=== PATIENT | female | born 1975 | race Two or more races ===

== ENCOUNTER 2024-08-04 15:03 | Emergency (ER) | payer MEDICAID, SELFPAY ==
[2024-08-04 15:04] VITALS: BMI 25.4
[2024-08-04 15:09] VITALS: BP 136/86; PULSE 83; RESP 16; TEMP 36.7; O2SAT 98
--- NOTE | 2024-08-04 15:11 | EKG_ITS ---
[facility] (Formerly [facility])[3] Test Date: 2024-08-04 Pat Name: RANCHO ENGEL Department: Room: - Gender: Female [employer]er Tube: : 1975 Requested By: Lawrence Jang (TOMMY) Order Number: [id number] Reading MD: Lawrence Jang (TOMMY) Measurements Intervals [place] Rate: 57 P: 49 SC: 154 QRS: 39 QRSD: 82 T: 36 QT: 421 QTc: 412 Interpretive Statements SINUS BRADYCARDIA WITH MARKED RHYTHM IRREGULARITY, POSSIBLE NON-CONDUCTED PAC, SA BLOCK, AV BLOCK, OR SINUS PAUSE ABNORMAL RHYTHM ECG No previous ECG available for comparison /[id number]/S0/[id number]
--- NOTE | 2024-08-04 16:07 | XR_ITS ---
Examination: PA lateral chest 2 views Technique: Upright PA lateral chest 2 views Exam date and time: August 04, 2024 1824 hrs. Comparison June 04, 2021 Indications: Shortness of breath chest pain beginning 2 days ago. Findings: Again noted large right mediastinal mass, currently 7.9 x 6.6 cm compressing and displacing the trachea to the left, please see the CT soft tissue neck study March 03, 2024 indicating partially calcified high right paratracheal mass 7.1 x 6.4 cm This mass was biopsied on October 20, 2021, pathology reports not available No obstructive pneumonia or pulmonary edema Impression: Again noted large right mediastinal mass, which is compressing and significantly displacing the trachea to the left Please see the CT soft tissue neck report March 03, 2024
--- NOTE | 2024-08-04 16:07 | XR_ITS ---
Examination: CT brain head without contrast. 2-D sagittal coronal reconstructions Date and time of exam:August 04, 2024 1659 hrs. Indications: Onset dizziness nausea vomiting beginning 3 days ago CTDI: vol (mGy):45.6 DLP: (mGycm):896 Technique: Multiple CT axial sections of the brain have been obtained, 5 mm slice thickness. Contrast has not been administered. 2-D sagittal, coronal reconstructions have been obtained Low dose protocols were performed. One or more of the following dose reduction techniques were used; automated exposure control, adjustment of the mA and/or KV according to patient size, use of iterative reconstruction technique. Findings: No significant ventricular enlargement. Intra-axial or extra-axial hemorrhage density is not seen. No mass effect or midline shift Basal cisterns are not remarkable. Fourth ventricle is midline. Cranial vault intact. Impression: Negative for acute hemorrhage, mass effect or midline shift Advise clinical correlation follow-up accordingly
--- NOTE | 2024-08-04 16:08 | PD.EDRME ---
Rapid Medical Screening Exam RME Arrival date/time: 08/04/24 15:03 41-year-old female presents to the emergency department complaints of dizziness Chief Complaint: Dizziness Vital signs: Vital Signs Temperature 98.0 F 08/04/24 15:09 Pulse Rate 83 08/04/24 15:09 Respiratory Rate 16 08/04/24 15:09 Blood Pressure 136/86 H 08/04/24 15:09 Pulse Oximetry (%) 98 08/04/24 15:09 Oxygen Delivery Method Room Air 08/04/24 15:09
[2024-08-04 16:27] LABS: Collection Type, Urine Clean Catch
[2024-08-04 17:07] LABS: Bacteria,Urine 1+; Bilirubin,Urine Negative (Negative); Blood,Urine 2+ (Negative); Clarity,Urine Clear (Clear/Hazy); Color,Urine Lt-Yellow (Lt Yel-Yel); Glucose, Urine 4+ (Negative); Ketones,Urine Negative (Negative); Leukocyte Esterase,Urine Negative (Negative); Nitrite,Urine Negative (Negative); PH,Urine 6.5 (5.0-7.0); Protein,Urine Negative (Neg - Trace); RBC,Urine 1 /hpf (0-3); Specific Gravity,Urine 1.031 (1.001-1.035); Squamous Epithelial Cell,Urine 1 /hpf (0-5); Urobilinogen,Urine Negative mg/dL (0.0-1.0); WBC,Urine 1 /hpf (0-5)
[2024-08-04 17:10] LABS: Culture Indicated,Urine Yes
[2024-08-04 17:44] LABS: Basophils # (Auto) 0.1 Thou/mm3 (0.0-0.2); Basophils % (Auto) 1 % (0-2.5); Eosinophils # (Auto) 0.6 Thou/mm3 (0.0-0.5); Eosinophils % (Auto) 5 % (0-10); Hematocrit 30.9 % (36.0-46.0); Hemoglobin 8.9 g/dL (12.0-16.0); Immature Granulocytes % (Auto) 0 % (0-0); Immature Granulocytes Auto 0.02 Thou/mm3 (0.00-0.00); Lymphocytes # (Auto) 3.9 Thou/mm3 (1.0-4.8); Lymphocytes % (Auto) 36 % (10-50); Mean Corpuscular HGB Conc 28.8 g/dl (31.0-37.0); Mean Corpuscular Hemoglobin 18.1 pg (25.0-35.0); Mean Corpuscular Volume 63 fL (80-100); Monocytes # (Auto) 0.9 Thou/mm3 (0.0-0.8); Monocytes % (Auto) 8 % (0-12); Neutrophils # (Auto) 5.2 Thou/mm3 (1.8-7.7); Neutrophils % (Auto) 49 % (37-80); Nucleated Red Blood Cell % 0 /100 WBC (0); Platelet Count 230 Thou/mm3 (140-440); RDW Standard Deviation 52.8 fL (36.4-46.3); Red Blood Count 4.92 Miln/mm3 (4.00-5.20); White Blood Count 10.6 Thou/mm3 (3.6-11.0)
[2024-08-04 18:00] LABS: Alanine Aminotransferase 50 U/L (10-49); Albumin, Serum 4.5 gm/dL (3.5-5.0); Albumin/Globulin Ratio 1.7 (1.2-2.2); Alkaline Phosphatase 92 U/L (46-116); Anion Gap 5 (7-16); Aspartate Amino Transferase 40 U/L (0-34); BUN/Creatinine Ratio 17 Ratio (12-20); Bilirubin,Total 0.4 mg/dL (0.3-1.2); Blood Urea Nitrogen 10 mg/dL (9-23); Calcium 9.5 mg/dL (8.3-10.6); Calcium (Corrected) 9.5 mg/dL (8.5-10.1); Carbon Dioxide 27.7 mMol/L (20.0-31.0); Chloride 104 mMol/L (98-107); Creatinine (Component) 0.6 mg/dL (0.6-1.3); Estimated Creatinine Clearance 104.2 mL/min (>60); Globulin 2.6 gm/dL (2.3-3.5); Glucose 110 mg/dL (74-106); Osmolality,Calculated 273 (275-295); Potassium 3.8 mMol/L (3.4-5.1); Sodium 137 mMol/L (136-145); Thyroid Stimulating Hormone 0.33 uIU/mL (0.55-4.78); Total Protein 7.1 gm/dL (5.7-8.2); Troponin I < 0.002 ng/mL (0.0-0.045); eGFR > 60 See Note
--- NOTE | 2024-08-04 18:54 | EDNOTE_ITS ---
ED Dizzyness RME/HPI General Chief Complaint: Dizziness Stated Complaint: NAUSEA DIZZINESS X 3 DAY HX DIABETES Time Seen by Provider: 08/04/24 18:31 Arrival date/time: 08/04/24 15:03 Limitations: no limitations RME / HPI RME / HPI Narrative: 08/04/24 15:03 41-year-old female presents to the emergency department complaints of dizziness DR. ELAM MAIN ED EVALUATION: 49 year old female presents to the Emergency Department with complaint of dizziness onset 3 days. Symptoms are moderate. PMHx: Thyroidectomy for benign disease and was diagnosed with left lung mass for which she is getting treatment, apparently it was benign according to her. Takes Levothyroxine. History of diabetes. Social Hx: No tobacco, alcohol, or substance use. Related Data Home Medications ?Medication ?Instructions ?Recorded ?Confirmed levothyroxine 50 mcg tablet 1 tab PO QDAY 02/05/22 02/24/23 sitagliptin phosphate 50 1 tab PO BID 02/05/22 02/24/23 mg-metformin 500 mg tablet (Janumet) drospirenone 3 mg-ethinyl 1 tab PO QDAY 02/23/23 02/24/23 estradiol 0.03 mg tablet (Breanne (28)) Allergies Allergy/AdvReac Type Severity Reaction Status Date / Time No Known Allergies Allergy Verified 09/05/23 11:11 Review of Systems Review of Systems Systems Reviewed: All systems reviewed, normal except as documented Narrative Review of Systems: GEN: No fever, no chills, no weight loss EYES: No discharge, no visual changes, no pain HEENT: No ear pain, no congestion, no sore throat PULM: No shortness of breath, no cough, no congestion CV: No chest pain, no dyspnea on exertion, no palpitations GI: No nausea, no vomiting, no diarrhea, no pain, no constipation : No frequency, no urgency and no dysuria MUSC/SKEL: No joint pain, no back pain SKIN: No rash PSYCH: No hallucinations, no depression HEME/LYMPH: No easy bleeding or bruising tendencies NEURO: No weakness, no headache, + dizziness Past Medical History Past Medical History NEUROLOGIC: Negative Neurological Disorders, Cerebrovascular Accident, Transient Ischemic Attacks (TIA), Dementia, Alzheimer's Disease, Parkinson's Disease, Brain Tumor, Meningitis, Seizures, Epilepsy, Multiple Sclerosis, Cerebral Palsy, Amyotrophic Lateral Sclerosis (ALS/Cammie Gehrig's), Guillain-[place] Syndrome, Spina Bifida, Paralysis, Peripheral Neuropathy, Parks's Palsy, Subdural Hematoma, Migraine, Head Trauma, Spinal Cord Injury or Traumatic Brain Injury CARDIAC: Negative Cardiac Disorders, Myocardial Infarction, Cardiac Arrhythmia, Atrial Fibrillation, Angina, Heart Murmur, Coronary Artery Disease, Atherosclerotic Heart Disease, Peripheral Vascular Disease, Hypercholesterolemia, Aneurysm, Congestive Heart Failure, Congenital Heart Disease, Valvular Heart Disease, Rheumatic Fever, Cardiomyopathy, Edema, Pericarditis, Cellulitis, Deep Vein Thrombosis, Hypertension, Hypotension or Varicose Veins RESPIRATORY: Negative Chronic Obstructive Pulmonary Disease (COPD), Asthma, Bronchitis, Emphysema, Pneumonia, Pulmonary Fibrosis, Cystic Fibrosis, Tuberculosis, Pulmonary Embolism, Pulmonary Edema or Sleep Apnea GASTROINTESTINAL: Negative Gastrointestinal Disorders, Hepatitis, Cirrhosis, Pancreatitis, Celiac Disease, Gall Bladder Disease, Gastrointestinal Bleed, Esophageal Varices, Desouza's Esophagus, Colitis, Ulcerative Colitis, Diverticulitis, Diverticulosis, Ulcer, Colorectal Cancer, Irritable Bowel, Crohn's Disease, Obstructive Bowel, Hiatal Hernia, Hemorrhoids, Gastroesophageal Reflux Disease or Obesity GENITOURINARY: Positive Genitourinary Disorders (OVARIAN CYSTS); Negative Renal Disease, Kidney Stones, Polycystic Kidney Disease, Neurogenic Bladder, Inguinal Hernia or Dialysis REPRODUCTIVE: Positive Previous Pregnancies; Negative Breast Cancer, Endometriosis, Genital Herpes, Gonorrhea, Pelvic Inflammatory Disease, Syphilis or Uterine Prolapse MUSCULOSKELETAL: Negative Musculoskeletal Disorders, Muscular Dystrophy, Myasthenia Gravis, Marfan's Syndrome, Bone Cancer, Arthritis, Rheumatoid Arthritis, Osteoporosis, Degenerative Disk Disease, Gout, Scoliosis, Carpal Tunnel Syndrome, Fibromyalgia, Fractures, Degenerative Joint Disease, Osteomyelitis or Poliovirus ENT: Negative Cataracts, Glaucoma, Blind, Retinal Detachment, Macular Degeneration, Ear Infection, Deafness, Head Trauma or Eye Prosthesis ENDOCRINE: Positive Endocrine Disorders, Diabetes Mellitus Type 2, Hyperthyroidism, Hypothyroidism and Parathyroid Disease; Negative Diabetes Mellitus Type 1, Hypoglycemia, Rad's Syndrome, Manolo's Disease, Pituitary Disease, Systemic Lupus Erythematosus, Syndrome of Inappropriate Antidiuretic Hormone (SIADH), Adrenal Disease or Graves' Disease HEMATOLOGIC: Positive Blood Disorders and Anemia; Negative Leukemia, Hemophilia, Thalassemia, Sickle Cell Disease or Clotting Problems PSYCHO/SOCIAL: Negative Psychiatric Problems, Schizophrenia, Recreational Drug Use, Bipolar Disorder, Depression, Anxiety, Behavior Problems, Self-Mutilation, Attention Deficit Disorder, Attention Deficit Hyperactivity Disorder, Depression, Post Traumatic Stress Disorder or Eating Disorder OTHER HISTORY: Positive Chicken Pox and Measles; Negative Hospitalization, Autoimmune Disease, Down Syndrome, Autism, Developmental Delay, Shingles, Falls, Blood Transfusions, Blood Transfusion Reaction, Anesthesia Reactions, Organ Transplant, Chemotherapy, Radiation Therapy, Hyperbaric Therapy, MRSA, VRSA, Vancomycin-Resistant Enterococci, Human Immunodeficiency Virus (HIV), Mumps, Rubella (Faroese Measles), Pertussis, Clostridium Difficile, Cancer, Breast Cancer, Cervical Cancer, Colorectal Cancer, Lung Cancer or Ovarian Cancer Family History FAMILY HISTORY: Negative Family Psychiatric Problems, Family Respiratory Disorders, Family Cardiac Disorders, Family Gastrointestinal Problems, Family Cancer, Family Surgery or Family Anesthesia Reaction Surgical History SURGICAL: Positive Thyroidectomy and Tubal Ligation; Negative Cardiac Surgery, Open Heart Surgery, Coronary Artery Bypass Graft, Valve Replacement, Vascular Surgery, Coronary Stent, Cardiac Catheterization, Pacemaker, Angiogram, Auto Implanted Cardiovert Defib, Carotid Endarterectomy, Endocrine Surgery, Ear Surgery, Tympanostomy Tube, Eye Surgery, Nose Surgery, Oral Surgery, Tonsillectomy, Adenoidectomy, Cochlear Implant, Corneal Transplant, Throat Surgery, Abdominal Surgery, Tracheostomy, Gastric Bypass Surgery, Gastrostomy, Bowel Surgery, Nephrectomy, Transurethral Resection, Joint Replacement, Amputation, Open Reduction Internal Fixation, Arthroscopy, Neurologic Surgery, Brain Shunt, Mastectomy, Lumpectomy, Hysterectomy, Section or Organ Transplant Social History SMOKING STATUS: Never smoker SUBSTANCE USE: does not use ED Exam General Limitations: Present no limitations General appearance: Present alert, in no apparent distress and other (Patient looks clinically dehydrated.) Head Head exam: Present atraumatic, normocephalic and normal inspection Eye Eye exam: Present normal appearance, PERRL and EOMI ENT ENT exam: Present normal exam, normal oropharynx and mucous membranes dry Neck Neck exam: Present normal inspection, full ROM and trachea midline Chest Chest inspection: Present normal inspection and symmetric chest wall rise Respiratory Respiratory exam: Present normal lung sounds bilaterally Cardiovascular Cardiovascular exam: Present regular rate, normal rhythm and normal heart sounds Abdominal Exam Abdominal exam: Present soft and normal bowel sounds Extremities Exam Extremities exam: Present normal inspection and full ROM Back Exam Back exam: Present normal inspection and full ROM Neurological Exam Neurological exam: Present alert, oriented X3 and CN II-XII intact Psychiatric Psychiatric exam: Present normal affect and normal mood Skin Skin exam: Present warm, dry, intact and normal color Course Quality Measures none Orders Category Date Time Status Bedside Blood Glucose NOW Care 08/04/24 15:[address] Screening NOW Care 08/04/24 23:19 Active EKG (ED ONLY) *Do not use* NOW Care 08/04/24 15:11 Completed Insert IV NOW Care 08/04/24 20:[address] chest abdomen pelvis w Stat Exams 08/04/24 23:[address] head/brain wo con Stat Exams 08/04/24 16:07 Completed EKG (ED Only) Stat Exams 08/04/24 15:11 Draft XR chest 2V Stat Exams 08/04/24 16:07 Completed CBC Stat Lab 08/04/24 17:18 Completed Comprehensive Metabolic Panel Stat Lab 08/04/24 17:18 Completed Free T4 (Free Thyroxine) Stat Lab 08/04/24 17:18 Completed HCG,Qualitative Serum Stat Lab 08/04/24 17:18 Completed TSH [Thyroid Stimulating Hormone] Stat Lab 08/04/24 17:18 Completed Troponin I Stat Lab 08/04/24 17:18 Completed UA, C/S IF [Urinalysis, C/S if Indicated] Stat Lab 08/04/24 16:15 Completed Urine Culture Stat Lab 08/04/24 16:15 Received Sodium Chloride 0.9% 1000 ml [Ns] 1,000 ml Med 08/04/24 20:28 Discontinued IV 999 mls/hr Vital Signs Vital signs: Vital Signs Temperature 98.0 F 08/04/24 15:09 Pulse Rate 83 08/04/24 15:09 Respiratory Rate 16 08/04/24 15:09 Blood Pressure 136/86 H 08/04/24 15:09 Pulse Oximetry (%) 98 08/04/24 15:09 Oxygen Delivery Method Room Air 08/04/24 15:09 Dizziness MDM Narrative MDM Narrative:: IDory am scribing for and in the presence of Dr. Elam. Patient data External records reviewed:: [facility] previous records (Reviewed last ED visit dated 03/03/24, discharged with the following: Peritracheal mass.) Clinical information provided by:: patient Social determinants that could affect healthcare access:: none Patient has the following chronic illnesses:: Thyroidectomy for benign disease and was diagnosed with left lung mass for which she is getting treatment, apparently it was benign according to her. Takes Levothyroxine. History of diabetes. How is presenting disease/condition affected by chronic disease/condition?: exacerbated by Evaluation data The following diagnostics were reviewed and interpreted by me:: lab results, radiology exam(s) and EKG tracing(s) (done at 1521, sinus bradycardia, rate of 57, PACs, no ST elevations or depressions, similar to previous EKG done in 2020.) Lab and/or radiology exams considered but not ordered:: none Interpretation Summary: Procedure(s): CT head/brain wo con Accession Number(s): [id number] cc: Suhail (TOMMY),Lawrence SANDERS; Handy Carr MD; Dhaval Burnham MD~ Examination: CT brain head without contrast. 2-D sagittal coronal reconstructions Date and time of exam:August 04, 2024 1659 hrs. Indications: Onset dizziness nausea vomiting beginning 3 days ago CTDI: vol (mGy):45.6 DLP: (mGycm):896 Technique: Multiple CT axial sections of the brain have been obtained, 5 mm slice thickness. Contrast has not been administered. 2-D sagittal, coronal reconstructions have been obtained Low dose protocols were performed. One or more of the following dose reduction techniques were used; automated exposure control, adjustment of the mA and/or KV according to patient size, use of iterative reconstruction technique. Findings: No significant ventricular enlargement. Intra-axial or extra-axial hemorrhage density is not seen. No mass effect or midline shift Basal cisterns are not remarkable. Fourth ventricle is midline. Cranial vault intact. Impression: Negative for acute hemorrhage, mass effect or midline shift Advise clinical correlation follow-up accordingly Dictated By: Dhaval Burnham MD ---- Procedure(s): XR chest 2V Accession Number(s): [id number] cc: Suhail (TOMMY),Lawrence SANDERS; Handy Carr MD; Dhaval Burnham MD~ Examination: PA lateral chest 2 views Technique: Upright PA lateral chest 2 views Exam date and time: August 04, 2024 1824 hrs. Comparison June 04, 2021 Indications: Shortness of breath chest pain beginning 2 days ago. Findings: Again noted large right mediastinal mass, currently 7.9 x 6.6 cm compressing and displacing the trachea to the left, please see the CT soft tissue neck study March 03, 2024 indicating partially calcified high right paratracheal mass 7.1 x 6.4 cm This mass was biopsied on October 20, 2021, pathology reports not available No obstructive pneumonia or pulmonary edema Impression: Again noted large right mediastinal mass, which is compressing and significantly displacing the trachea to the left Please see the CT soft tissue neck report March 03, 2024 Dictated By: Dhaval Burnham MD -------- Telerad Preliminary Report Draft Patient: RANCHO ENGEL. Record#: [id number] Birthdate: 1975 Age/Sex: 49 / F Location: [facility] Attending Dr: Ordering Physician: Date of Service: Procedure(s): Accession Number(s): cc: ~ CT scan of the chest, abdomen and pelvis with intravenous contrast (axial sections with sagittal and coronal reformats) August 05, 2024 0033 hours Clinical History: 49-year-old diabetes history of mediastinal mass Comparison: Reference is made to the prior report dated June 04, 2021. Findings: The lungs are clear. There is no pleural effusion or pneumothorax. The aorta and its branches demonstrate atheromatous calcification without evidence of aneurysm. No evidence of mediastinal lymphadenopathy. There is a soft tissue round mass in the right upper mediastinum with heterogeneous enhancement and peripheral rim calcifications, measuring up to 7 x 7 x 6 cm (AP x CC x TR). There is no pericardial effusion. There is borderline cardiomegaly. There is a small (6 mm) hypodense nodules in the left lobe of the thyroid gland (axial image 4). There is mild fatty infiltration of the liver. The gallbladder, spleen, pancreas, adrenals and kidneys are unremarkable. No evidence of bowel obstruction. A moderate amount of fecal material is present in the colon . The appendix is within normal limits (axial image 217). The urinary bladder is unremarkable. There is a 2 cm hypodense round lesion in the uterus (axial image 247). There is a 2 cm left ovarian cyst (axial image 244). There is no free fluid or air. There are moderate degenerative changes in the hip joints. There are moderate degenerative changes in the spine. Impression: Right upper mediastinal mass as described. No evidence of lymphadenopathy. No evidence of other acute intrathoracic, intra-abdominal or pelvic pathology. Other findings as described above. Report Electronically Signed By: Eva Sparks 08/05/2024 1:51:14 AM [EST] Medications / Prescriptions Medications or Prescriptions considered but not ordered:: none Medication administrations:: Medication Administration History Discontinued Medications Sodium Chloride (Ns) 1,000 mls @ 999 mls/hr IV .Q1H1M ONE Stop: 08/04/24 21:28 Last Infusion: 08/04/24 22:03 Dose: Infused Documented By: Admin: 08/04/24 20:53 Dose: 999 mls/hr Documented By: TATUM see above Consultations Consultation(s) initiated? (list below): No Diagnosis Dizziness Differential Diagnosis: other (Diabetes, dehydration, electrolyte abnormality, thyroid disease) Most likely diagnosis given after review of the tests above:: see below Admission Indicated Admission indicated?: not indicated Admission Request Was there a request for admission?: No Disposition Plan Disposition Plan: Discharge Discharge Attestation Discharge Attestation: The patient and all family members were given an opportunity to ask questions and understood the discharge instructions. Discharge instructions specifically effects, indications for sooner follow up or return to the emergency department, and the expected course of current diagnosis. Patient condition: Stable Discharge Plan Plan Patient Disposition: HOME (Self Care) Patient condition on transfer: Stable Prescriptions/Referrals Prescriptions/Med Rec: No Action levothyroxine 50 mcg tablet 1 tab PO QDAY Janumet 50-500 mg tablet 1 tab PO BID drospirenone-ethinyl estradiol [Breanne (28)] 3-0.03 mg tablet 1 tab PO QDAY Referrals: Handy Carr MD [Primary Care Provider] - In 1 week Problem List Clinical Impression: Weakness, Chronic anemia Patient/Caregiver Discharge Instructions Education Materials: Understanding Tachycardia, ED CYSTITIS Female Adult, UITs Women Additional Instructions: Take your medication as prescribed. You will need to follow-up with your primary care in the next 48 to 72 hours to get the results of the urine culture. Avoid any type of stimulants to include caffeine, stay hydrated with Pedialyte and/or Gatorade and you want your urine to be most clear so you know that you are hydrated well. Return to the emergency department sooner for worsening symptoms, you feel like you are going to pass out, your heart rate increases, you have fever, or any other concerns. Print Language: Cymro Stand Alone Forms: Crystal Award Info., Patient Portal Info Letter
[2024-08-04 20:13] VITALS: BP 174/68; PULSE 58; RESP 16; TEMP 36.7; O2SAT 100
[2024-08-04] MEDS: SODIUM CHLORIDE 0.9% 1000 ML 1,000 ML 999 ML IV (20:53)
[2024-08-04 23:19] VITALS: BP 117/53; PULSE 70; RESP 17; TEMP 36.6; O2SAT 96
--- NOTE | 2024-08-04 23:19 | XR_ITS ---
Examination: CT chest with intravenous contrast CT abdomen with intravenous contrast CT pelvis with intravenous contrast 2-D coronal and sagittal reconstructions Time of exam: August 05, 2024 0033 hrs. Indications: Shortness of breath abdominal pain nausea dizziness beginning 3 days ago, history mediastinal mass on chest imaging and on CT chest June 04, 2021 CTDI: vol (mGy) : 6.83 DLP: (mGycm): 487 Technique: Multiple axial images of the chest, abdomen and pelvis with intravenous contrast, 3.0 mm slice thickness. Images obtained post intravenous injection Isovue 370 60 cc. 2-D sagittal and coronal reconstructions. Low dose protocols were performed. One or more of the following dose reduction techniques were used; automated exposure control, adjustment of the mA and/or KV according to patient size, use of iterative reconstruction technique. Findings: Large right lateral superior mediastinal mass again depicted, 7.1 x 6.3 cm compared to 6.6 x 6.3 cm June 04, 2021 This may actually represent residual of a enlarged substernal right thyroid lobe clinical correlation advised I do not have the biopsy results of this mass The mass is displacing the trachea to the left hand narrowing the mediolateral dimension of the trachea, axial image 37, history 10 mm 6 mm left thyroid nodule Aorta not enlarged No pulmonary artery emboli CTA study No lobar pneumonia or pulmonary edema No liver or splenic lesion Contracted gallbladder No pancreatic or adrenal mass No renal or ureteral calculi, no hydronephrosis Normal appendix No bowel obstruction 12 mm enhancing mass in the fundus of uterus Urinary bladder intact Impression: Large right superior-lateral mediastinal mass again noted, 7.1 x 6.3 cm compared to 6.6 x 6.3 cm on June 04, 2021 Differential for this mass would include substernal right thyroid mass 6 mm left thyroid nodule No pneumonia or pulmonary edema No acute process in the abdomen and pelvis Recommend pelvic sonography to assess enhancing mass in the fundus of uterus
[2024-08-05 00:12] LABS: HCG,Qualitative Serum Negative
[2024-08-05 01:00] VITALS: BP 134/85; PULSE 59; RESP 18; TEMP 36.6; O2SAT 99
--- NOTE | 2024-08-05 01:51 | PRELIM_ITS ---
CT scan of the chest, abdomen and pelvis with intravenous contrast (axial sections with sagittal and coronal reformats) August 05, 2024 0033 hours Clinical History: 49-year-old diabetes history of med iastinal mass Comparison: Reference is made to the prior report dated June 04, 2021. Findings:The lungs are clear. There is no pleural effusion or pneumothorax. The aorta and its branches demonstrate atheromatous calcification without evidence of aneurysm. No evidence of mediastinal lymphadenopathy. There is a soft tissue round mass in the right upper mediastinum with heterogeneous enhancement and peripheral rim calcifications, measuring up to 7 x 7 x 6 cm (AP x CC x TR). There is no pericardial e ffusion. There is borderline cardiomegaly. There is a small (6 mm) hypodense nodules in the left lobe of the thyroid gland (axial image 4).There is mild fatty infiltration of the liver. The gallbladder, spleen, pancreas, adrenals and kidneys are unremarkable.No evidence of bowel obstruction. A moderate amount of fecal material is present in the colon . The appendix is within normal limits (axial image 217).The urinary bladder is unremarkable. There is a 2 cm hypodense round lesion in the uterus (axia l image 247). There is a 2 cm left ovarian cyst (axial image 244). There is no free fluid or air.Ther e are moderate degenerative changes in the hip joints. There are moderate degenerative changes in the spine.Impression:Right upper mediastinal mass as described. No evidence of lymphadenopathy.No eviden ce of other acute intrathoracic, intra-abdominal or pelvic pathology.Other findings as described patrick sainz Report Electronically Signed By: Eva Sparks 08/05/2024 1:51:14 AM [EST]
[2024-08-05 02:45] VITALS: BP 129/63; PULSE 58; RESP 16; TEMP 36.7; O2SAT 97
[2024-08-05 04:29] LABS: Path Review Blood Smear Sent to Pathologist
== END 2024-08-05 02:45 | disposition home or self-care (01) ==
PROVIDERS: Nurse Practitioner Primary Care; Emergency Provider Emergency Medicine; PCP Family Medicine
DX: D64.9 Anemia, unspecified (principal); J98.59 Other diseases of mediastinum, not elsewhere classified; R53.1 Weakness; R00.1 Bradycardia, unspecified; R42 Dizziness and giddiness; R11.2 Nausea with vomiting, unspecified
CPT/HCPCS: 36415; 70450; 71046; 71260; 74177; 80053; 81001; 84439; 84443; 84484; 84703; 85025; 87077; 87086; 87186; 93005; 96360; 99285; A4649; J7030; Q9967

== ENCOUNTER 2024-12-29 11:20 | Emergency (ER) | payer MEDICAID, SELFPAY ==
[2024-12-29 12:04] VITALS: BP 121/76; PULSE 59; RESP 18; TEMP 37.2; O2SAT 98; BMI 22.0
--- NOTE | 2024-12-29 12:15 | XR_ITS ---
Examination: Thyroid sonography complete Technique: Grayscale sonographic images thyroid lobes Date and time: December 29, 2024 1320 hrs. Indications: Throat pain beginning 3 weeks ago, history thyroid ectomy Findings: Absent right thyroid lobe Left thyroid 4.0 x 1.7 x 1.7 cm Multiple thyroid nodules, the largest in the lower pole 1.1 x 0.7 x 2.8 cm, 0.6 x 0.4 x 0.5 cm and cysts 0.9 x 0.7 x 0.8 cm Impression: Negative for left thyromegaly Multiple left thyroid nodules as above
--- NOTE | 2024-12-29 12:19 | PD.EDDENTL ---
ED Dental RME/HPI General Chief complaint: Dental/Oral/Throat Stated complaint: SORE THROAT X 3 WKS Time Seen by Provider: 12/29/24 11:31 Arrival date/time: 12/29/24 11:20 This is a 49-year-old female that comes in with complaints of sore throat for the last 3 days. Patient states that she had her thyroid removed approximately 2 years ago. Patient states that after her thyroid was removed she has trouble swallowing on and off. Patient has been seen for this problem with her primary provider. She reports that before she found out she had her thyroid removed she felt like there was a lump in her neck. Then knots when they found the cancer. Patient concerned that the cancer is back. Patient also complains of small little ulcers inside her mouth. Patient complains of a mild headache. History of diabetes and thyroid cancer. Related Data Home Medications ?Medication ?Instructions ?Recorded ?Confirmed levothyroxine 50 mcg tablet 1 tab PO QDAY 02/05/22 02/24/23 sitagliptin phosphate 50 1 tab PO BID 02/05/22 02/24/23 mg-metformin 500 mg tablet (Janumet) drospirenone 3 mg-ethinyl 1 tab PO QDAY 02/23/23 02/24/23 estradiol 0.03 mg tablet (Breanne (28)) Previous Rx's ?Medication ?Instructions ?Recorded ibuprofen 800 mg tablet 800 mg PO Q6H PRN pain #14 tabs 12/29/24 Allergies Allergy/AdvReac Type Severity Reaction Status Date / Time No Known Allergies Allergy Verified 12/29/24 11:23 Course Orders Category Date Time Status US thyroid Stat Exams 12/29/24 12:15 Completed Acetaminophen Tab [Tylenol ES Tab] Med 12/29/24 12:15 Discontinued 1,000 mg PO X1 ONE Ibuprofen Tab [Motrin Tab] Med 12/29/24 12:15 Discontinued 800 mg PO X1 ONE Vital Signs Vital signs: Vital Signs Temperature 98.9 F 12/29/24 12:04 Pulse Rate 59 L 12/29/24 12:04 Respiratory Rate 18 12/29/24 12:04 Blood Pressure 121/76 12/29/24 12:04 Pulse Oximetry (%) 98 12/29/24 12:04 Oxygen Delivery Method Room Air 12/29/24 12:04 Dental / Oral MDM Narrative MDM Narrative:: Findings: Absent right thyroid lobe Left thyroid 4.0 x 1.7 x 1.7 cm Multiple thyroid nodules, the largest in the lower pole 1.1 x 0.7 x 2.8 cm, 0.6 x 0.4 x 0.5 cm and cysts 0.9 x 0.7 x 0.8 cm Impression: Negative for left thyromegaly Multiple left thyroid nodules as above Medications / Prescriptions Medication administrations:: Medication Administration History Discontinued Medications Acetaminophen (Acetaminophen 500 Mg Tablet) 1,000 mg PO X1 ONE Stop: 12/29/24 12:16 Last Admin: 12/29/24 12:46 Dose: 1,000 mg Documented By: CALIXTO Ibuprofen (Ibuprofen Tab 400 Mg Tablet) 800 mg PO X1 ONE Stop: 12/29/24 12:16 Last Admin: 12/29/24 12:46 Dose: 800 mg Documented By: CALIXTO Discharge Plan Plan Patient Disposition: HOME (Self Care) Patient condition on transfer: Stable Prescriptions/Referrals Prescriptions/Med Rec: New ibuprofen 800 mg tablet 800 mg PO Q6H PRN (Reason: pain) Qty: 14 0RF No Action levothyroxine 50 mcg tablet 1 tab PO QDAY Janumet 50-500 mg tablet 1 tab PO BID drospirenone-ethinyl estradiol [Breanne (28)] 3-0.03 mg tablet 1 tab PO QDAY Referrals: Eliza Lobato PA-C [Primary Care Provider] - In 1 week Problem List Clinical Impression: Aphthous ulcer of mouth, URI (upper respiratory infection) Patient/Caregiver Discharge Instructions Discharge Activity: activity as tolerated Education Materials: ED Canker Sore, ED URI, Viral, No Abx (Adult) Additional Instructions: US thyroid: Findings: Absent right thyroid lobe Left thyroid 4.0 x 1.7 x 1.7 cm Multiple thyroid nodules, the largest in the lower pole 1.1 x 0.7 x 2.8 cm, 0.6 x 0.4 x 0.5 cm and cysts 0.9 x 0.7 x 0.8 cm Impression: Negative for left thyromegaly Multiple left thyroid nodules as above Dona un sonido con palencia medico de cabecera en las proximas 24-48 horas. Regrese a la justo de emergencias si hay evidencia de que los signos o sintomas empeoran. Print Language: Jordanian Stand Alone Forms: Crystal Award Info., Patient Portal Info Letter PA/HOSPITAL MORTICIAN Supervising Physician PA/HOSPITAL MORTICIAN Supervising Physician: mira
[2024-12-29] MEDS: ACETAMINOPHEN 500 MG TABLET 1000 MG PO (12:46)
[2024-12-29] MEDS: IBUPROFEN TAB 400 MG TABLET 800 MG PO (12:46)
== END 2024-12-29 16:00 | disposition home or self-care (01) ==
PROVIDERS: Emergency Provider Emergency Medicine; PCP Physician Assistant Medical
DX: K12.0 Recurrent oral aphthae (principal); J06.9 Acute upper respiratory infection, unspecified; R51.9 Headache, unspecified; E11.9 Type 2 diabetes mellitus without complications; Z85.850 Personal history of malignant neoplasm of thyroid; E04.2 Nontoxic multinodular goiter
CPT/HCPCS: 76536; 99284; A9270

== ENCOUNTER 2025-02-18 15:22 | Outpatient (RCR) | payer MEDICAID, SELFPAY | END 2025-03-14 23:59 | disposition home or self-care (01) | LOC: SCTC 15:22 | PROVIDERS: PCP Physician Assistant Medical; Referring Provider Physician Assistant Medical; Visit Provider Nurse Practitioner Family | DX: D50.9 Iron deficiency anemia, unspecified (principal); N92.0 Excessive and frequent menstruation with regular cycle; E89.0 Postprocedural hypothyroidism; Z79.890 Hormone replacement therapy | CPT/HCPCS: 99212; G0463 ==

== ENCOUNTER → 2025-04-22 | Outpatient (CLI) | payer MEDICAID, SELFPAY ==
[2025-04-22 08:11] LABS: Basophils # (Auto) 0.1 Thou/mm3 (0.0-0.2); Basophils % (Auto) 2 % (0-2.5); Eosinophils # (Auto) 0.3 Thou/mm3 (0.0-0.5); Eosinophils % (Auto) 5 % (0-10); Hematocrit 26.4 % (36.0-46.0); Immature Granulocytes Auto 0.04 Thou/mm3 (0.00-0.00); Lymphocytes # (Auto) 2.1 Thou/mm3 (1.0-4.8); Lymphocytes % (Auto) 32 % (10-50); Mean Corpuscular HGB Conc 26.5 g/dl (31.0-37.0); Mean Corpuscular Hemoglobin 15.7 pg (25.0-35.0); Mean Corpuscular Volume 59 fL (80-100); Monocytes # (Auto) 0.5 Thou/mm3 (0.0-0.8); Monocytes % (Auto) 7 % (0-12); Neutrophils # (Auto) 3.5 Thou/mm3 (1.8-7.7); Neutrophils % (Auto) 53 % (37-80); Nucleated Red Blood Cell # 0.00 Thou/mm3 (0.00-0.00); Nucleated Red Blood Cell % 0 /100 WBC (0); Platelet Count 206 Thou/mm3 (140-440); RDW Standard Deviation 41.5 fL (36.4-46.3); Red Blood Count 4.46 Miln/mm3 (4.00-5.20); White Blood Count 6.6 Thou/mm3 (3.6-11.0)
[2025-04-22 08:13] LABS: HCG,Qualitative Serum Negative; Hemoglobin 7.0 g/dL (12.0-16.0)
--- NOTE | 2025-04-22 08:30 | XR_ITS ---
Examination: Ultrasound-guided fine needle percutaneous aspiration thyroid nodule, left thyroid nodule. Thyroid sonography, limited Exam date and time: April 22, 2025 0902 hours INDICATIONS: Thyroid sonogram December 29, 2024 multiple left thyroid nodules, the largest 11 x 2.8 cm. Technique: A timeout was completed verifying correct patient, procedure, site, positioning and special equipment if applicable. The patient was placed in supine position for the thyroid fine needle percutaneous aspiration The patient's left neck was prepped and draped in sterile fashion. Maximum barrier sterile technique, hand hygiene, ultrasound sterile technique. 1% lidocaine was used to anesthetize the skin and subcutaneous tissues to the patient's right thyroid nodule. Multiple fine needle aspirations were performed and multiple thyroid specimens placed in preservative according to the irm protocol. Specimens appears satisfactory. The attending radiologist was present for the entire procedure. Estimated blood loss 3 cc. The patient tolerated the procedure well and there were no complications. Impression: Successful ultrasound-guided fine-needle percutaneous aspiration thyroid nodule, left thyroid nodule.
[2025-04-22 08:32] LABS: INR 1.0 (0.9-1.3); Partial Thromboplastin Time 21.6 Seconds (22.0-36.0); Prothrombin Time 10.5 Seconds (9.0-12.2)
[2025-04-22 14:23] LABS: Path Review Blood Smear Sent to Pathologist
== END | disposition home or self-care (01) ==
PROVIDERS: Radiology Diagnostic Radiology; PCP Physician Assistant Medical; Referring Provider Physician Assistant Medical; Visit Provider Physician Assistant Medical
DX: E04.1 Nontoxic single thyroid nodule (principal); Z01.812 Encounter for preprocedural laboratory examination
CPT/HCPCS: 10005; 36415; 84703; 85025; 85610; 85730

== ENCOUNTER 2025-06-10 11:34 | Emergency (ER) | payer MEDICAID, SELFPAY ==
[2025-06-10] VITALS (12 sets, daily range): BP systolic 118–147; BP diastolic 54–74; PULSE 60–73; RESP 14–18; TEMP 36.7–37.3; O2SAT 99–100; BMI 24.6
--- NOTE | 2025-06-10 12:04 | PD.EDRME ---
Rapid Medical Screening Exam RME Arrival date/time: 06/10/25 11:34 50-year-old female with a history of iron deficiency anemia was sent to the emergency room by the cancer treatment center for hemoglobin of 6.3 I have greeted and performed a focused initial assessment of this patient. A comprehensive ED assessment and evaluation of the patient, analysis of all test results, and completion of the medical decision making process will be conducted by additional ED providers. Chief Complaint: General Adult/Misc Complain Time Seen by Provider: 06/10/25 11:53 Vital signs: Vital Signs Temperature 98.1 F 06/10/25 12:02 Pulse Rate 73 06/10/25 12:02 Respiratory Rate 18 06/10/25 12:02 Blood Pressure 120/71 06/10/25 12:02 Pulse Oximetry (%) 100 06/10/25 12:02 Oxygen Delivery Method Room Air 06/10/25 12:02 Vital signs reviewed by provider: Yes Exam: Strong and regular rhythm, S1-S2 noted no murmurs no gallops Clear bilateral lung sounds Clinical Impression: Iron deficiency anemia/weakness
[2025-06-10 13:07] LABS: Basophils # (Auto) 0.1 Thou/mm3 (0.0-0.2); Basophils % (Auto) 2 % (0-2.5); Eosinophils # (Auto) 0.3 Thou/mm3 (0.0-0.5); Eosinophils % (Auto) 4 % (0-10); Hematocrit 24.7 % (36.0-46.0); Immature Granulocytes Auto 0.01 Thou/mm3 (0.00-0.00); Lymphocytes # (Auto) 2.3 Thou/mm3 (1.0-4.8); Lymphocytes % (Auto) 35 % (10-50); Mean Corpuscular HGB Conc 25.9 g/dl (31.0-37.0); Mean Corpuscular Hemoglobin 14.9 pg (25.0-35.0); Mean Corpuscular Volume 57 fL (80-100); Monocytes # (Auto) 0.5 Thou/mm3 (0.0-0.8); Monocytes % (Auto) 8 % (0-12); Neutrophils # (Auto) 3.4 Thou/mm3 (1.8-7.7); Neutrophils % (Auto) 51 % (37-80); Nucleated Red Blood Cell # 0.00 Thou/mm3 (0.00-0.00); Nucleated Red Blood Cell % 0 /100 WBC (0); Platelet Count 276 Thou/mm3 (140-440); RDW Standard Deviation 40.5 fL (36.4-46.3); Red Blood Count 4.30 Miln/mm3 (4.00-5.20); White Blood Count 6.7 Thou/mm3 (3.6-11.0)
[2025-06-10 13:15] LABS: Alanine Aminotransferase 9 U/L (10-49); Albumin, Serum 4.4 gm/dL (3.5-5.0); Albumin/Globulin Ratio 1.6 (1.2-2.2); Alkaline Phosphatase 74 U/L (46-116); Anion Gap 9 (7-16); Aspartate Amino Transferase 23 U/L (0-34); BUN/Creatinine Ratio 13 Ratio (12-20); Bilirubin,Total 0.7 mg/dL (0.3-1.2); Blood Urea Nitrogen < 5 mg/dL (9-23); Calcium 9.2 mg/dL (8.3-10.6); Calcium (Corrected) 9.2 mg/dL (8.5-10.1); Carbon Dioxide 26.1 mMol/L (20.0-31.0); Chloride 105 mMol/L (98-107); Creatinine (Component) 0.4 mg/dL (0.6-1.3); Estimated Creatinine Clearance 152.2 mL/min (>60); Globulin 2.8 gm/dL (2.3-3.5); Glucose 112 mg/dL (74-106); INR 1.0 (0.9-1.3); Osmolality,Calculated 277 (275-295); Partial Thromboplastin Time 22.6 Seconds (22.0-36.0); Potassium 3.9 mMol/L (3.4-5.1); Prothrombin Time 10.4 Seconds (9.0-12.2); Sodium 140 mMol/L (136-145); Total Protein 7.2 gm/dL (5.7-8.2); eGFR > 60 See Note
[2025-06-10 13:35] LABS: Hemoglobin 6.4 g/dL (12.0-16.0)
--- NOTE | 2025-06-10 14:10 | EDNOTE_ITS ---
ED General RME/HPI General Chief complaint: General Adult/Misc Complain Stated complaint: NEED BLOOD TRANSFUSION SENT BY [facility] Time Seen by Provider: 06/10/25 11:53 Arrival date/time: 06/10/25 11:34 CC: Low blood count HPI patient presents to the ER after being sent over from the cancer [facility] for hemoglobin of 6.3. Past medical history shows the patient had resection of a colon cancer in 2022 and has an identified thyroid nodule from April of this year. Patient is awake alert oriented nontoxic-appearing not in any acute distress. Patient informs me that she has had a chronic history with anemia and was being seen by Dr. Acosta for anemia not for cancer issue. The patient has had iron infusions and has had a transfusion with iron last year and is feeling the same chronically fatigued, with intermittent shortness of breath. Patient is no specific complaints at this time. RME / HPI RME / HPI narrative: 06/10/25 11:34 50-year-old female with a history of iron deficiency anemia [facility] I have greeted and performed a focused initial assessment of this patient. A comprehensive ED assessment and evaluation of the patient, analysis of all test results, and completion of the medical decision making process will be conducted by additional ED providers. Exam: Strong and regular rhythm, S1-S2 noted no murmurs no gallops Clear bilateral lung sounds Impression: Iron deficiency anemia/weakness Related Data Home Medications ?Medication ?Instructions ?Recorded ?Confirmed levothyroxine 50 mcg tablet 1 tab PO QDAY 02/05/22 sitagliptin phosphate 50 1 tab PO BID 02/05/22 mg-metformin 500 mg tablet (Janumet) drospirenone 3 mg-ethinyl 1 tab PO QDAY 02/23/2302/24 estradiol 0.03 mg tablet (Breanne (28)) Previous Rx's ?Medication ?Instructions ?Recorded ibuprofen 800 mg tablet 800 mg PO Q6H PRN pain #14 t abs 12/29/24 Allergies Allergy/AdvReac Type Severity Reaction Status Date / Time No Known Allergies Allergy Verified 06/10/25 11:36 Review of Systems Review of Systems Narrative Review of Systems: GEN: No fever, no chills, no weight loss EYES: No discharge, no visual changes, no pain HEENT: No ear pain, no congestion, no sore throat PULM: No shortness of breath, no cough, no congestion CV: No chest pain, no dyspnea on exertion, no palpitations GI: No nausea, no vomiting, no diarrhea, no pain, no constipation : No frequency, no urgency, no dysuria MUSC/SKEL: No joint pain, no back pain SKIN: No rash PSYCH: No hallucinations, no depression HEME/LYMPH: No easy bleeding or bruising tendencies NEURO: + weakness, no headache Past Medical History Past Medical History NEUROLOGIC: Negative Neurological Disorders, Cerebrovascular Accident, Transient Ischemic Attacks (TIA), Dementia, Alzheimer's Disease, Parkinson's Disease, Brain Tumor, Meningitis, Seizures, Epilepsy, Multiple Sclerosis, Cerebral Palsy, Amyotrophic Lateral Sclerosis (ALS/Cammie Gehrig's), Guillain-Butterfield Syndrome, Spina Bifida, Paralysis, Peripheral Neuropathy, Parks's Palsy, Subdural Hematoma, Migraine, Head Trauma, Spinal Cord Injury or Traumatic Brain Injury CARDIAC: Negative Cardiac Disorders, Myocardial Infarction, Cardiac Arrhythmia, Atrial Fibrillation, Angina, Heart Murmur, Coronary Artery Disease, Atherosclerotic Heart Disease, Peripheral Vascular Disease, Hypercholesterolemia, Aneurysm, Congestive Heart Failure, Congenital Heart Disease, Valvular Heart Disease, Rheumatic Fever, Cardiomyopathy, Edema, Pericarditis, Cellulitis, Deep Vein Thrombosis, Hypertension, Hypotension or Varicose Veins RESPIRATORY: Negative Chronic Obstructive Pulmonary Disease (COPD), Asthma, Bronchitis, Emphysema, Pneumonia, Pulmonary Fibrosis, Cystic Fibrosis, Tuberculosis, Pulmonary Embolism, Pulmonary Edema or Sleep Apnea GASTROINTESTINAL: Negative Gastrointestinal Disorders, Hepatitis, Cirrhosis, Pancreatitis, Celiac Disease, Gall Bladder Disease, Gastrointestinal Bleed, Esophageal Varices, Desouza's Esophagus, Colitis, Ulcerative Colitis, Diverticulitis, Diverticulosis, Ulcer, Colorectal Cancer, Irritable Bowel, Crohn's Disease, Obstructive Bowel, Hiatal Hernia, Hemorrhoids, Gastroesophageal Reflux Disease or Obesity GENITOURINARY: Positive Genitourinary Disorders (OVARIAN CYSTS); Negative Renal Disease, Kidney Stones, Polycystic Kidney Disease, Neurogenic Bladder, Inguinal Hernia or Dialysis REPRODUCTIVE: Positive Previous Pregnancies; Negative Breast Cancer, Endometriosis, Genital Herpes, Gonorrhea, Pelvic Inflammatory Disease, Syphilis or Uterine Prolapse MUSCULOSKELETAL: Negative Musculoskeletal Disorders, Muscular Dystrophy, Myasthenia Gravis, Marfan's Syndrome, Bone Cancer, Arthritis, Rheumatoid Arthritis, Osteoporosis, Degenerative Disk Disease, Gout, Scoliosis, Carpal Tunnel Syndrome, Fibromyalgia, Fractures, Degenerative Joint Disease, Osteomyelitis or Poliovirus ENT: Negative Cataracts, Glaucoma, Blind, Retinal Detachment, Macular Degeneration, Ear Infection, Deafness, Head Trauma or Eye Prosthesis ENDOCRINE: Positive Endocrine Disorders, Diabetes Mellitus Type 2, Hyperthyroidism, Hypothyroidism and Parathyroid Disease; Negative Diabetes Mellitus Type 1, Hypoglycemia, Gary's Syndrome, Manolo's Disease, Pituitary Disease, Systemic Lupus Erythematosus, Syndrome of Inappropriate Antidiuretic Hormone (SIADH), Adrenal Disease or Graves' Disease HEMATOLOGIC: Positive Blood Disorders and Anemia; Negative Leukemia, Hemophilia, Thalassemia, Sickle Cell Disease or Clotting Problems PSYCHO/SOCIAL: Negative Psychiatric Problems, Schizophrenia, Recreational Drug Use, Bipolar Disorder, Depression, Anxiety, Behavior Problems, Self-Mutilation, Attention Deficit Disorder, Attention Deficit Hyperactivity Disorder, Depression, Post Traumatic Stress Disorder or Eating Disorder OTHER HISTORY: Positive Chicken Pox and Measles; Negative Hospitalization, Autoimmune Disease, Down Syndrome, Autism, Developmental Delay, Shingles, Falls, Blood Transfusions, Blood Transfusion Reaction, Anesthesia Reactions, Organ Transplant, Chemotherapy, Radiation Therapy, Hyperbaric Therapy, MRSA, VRSA, Vancomycin-Resistant Enterococci, Human Immunodeficiency Virus (HIV), Mumps, Rubella (Armenian Measles), Pertussis, Clostridium Difficile, Cancer, Breast Cancer, Cervical Cancer, Colorectal Cancer, Lung Cancer or Ovarian Cancer Family History FAMILY HISTORY: Negative Family Psychiatric Problems, Family Respiratory Disorders, Family Cardiac Disorders, Family Gastrointestinal Problems, Family Cancer, Family Surgery or Family Anesthesia Reaction Surgical History SURGICAL: Positive Thyroidectomy and Tubal Ligation; Negative Cardiac Surgery, Open Heart Surgery, Coronary Artery Bypass Graft, Valve Replacement, Vascular Surgery, Coronary Stent, Cardiac Catheterization, Pacemaker, Angiogram, Auto Implanted Cardiovert Defib, Carotid Endarterectomy, Endocrine Surgery, Ear Surgery, Tympanostomy Tube, Eye Surgery, Nose Surgery, Oral Surgery, Tonsillectomy, Adenoidectomy, Cochlear Implant, Corneal Transplant, Throat Surgery, Abdominal Surgery, Tracheostomy, Gastric Bypass Surgery, Gastrostomy, Bowel Surgery, Nephrectomy, Transurethral Resection, Joint Replacement, Amputation, Open Reduction Internal Fixation, Arthroscopy, Neurologic Surgery, Brain Shunt, Mastectomy, Lumpectomy, Hysterectomy, Section or Organ Transplant Social History SMOKING STATUS: Never smoker SUBSTANCE USE: does not use ED Exam Narrative Physical exam: [General: Not in any acute distress Head normocephalic HEENT: Eyes pupils are PERRLA EOMs are intact blanched conjunctiva mouth pale lips, swallow symmetrical phonation is normal. All of the substance of HEENT are within acceptable limits Neck is supple nontender Chest equal chest rise nontender to palpation Respiratory: Clear to auscultation no wheezes crackles or rubs CV: Rate rhythm is regular no murmurs rubs or clicks Abdomen is soft nontender no masses positive bowel sounds all 4 quadrants Back: No CVA tenderness no spinous process tenderness from cervical spine thora cic and lumbar spine Skin: Intact no petechiae rash induration ulceration or crepitus Extremities: Moving all extremity against resistance cap refill less than 2 seconds neurosensory intact Neuro: Awake alert oriented x3 Glascow coma 15 no focal deficits] Course Course Course Narrative: Patient's case clinical findings presentation and imaging discussed with Dr. Clayton attending who agrees to accept the patient for osteomyelitis for IV antibiotics. Quality Measures none Orders Category Date Time Status IV [Insert IV] NOW Care 06/10/25 14:54 Active Transfuse,blood/blood products NOW Care 06/10/25 14:06 Active CBC Stat Lab 06/10/25 12:20 Completed CMP [Comprehensive Metabolic Panel] Stat Lab 06/10/25 12:20 Completed PT [Prothrombin Time with INR] Stat Lab 06/10/25 12:20 Completed PTT [Partial Thromboplastin Time] Stat Lab 06/10/25 12:20 Completed Type and Screen Stat Lab 06/10/25 13:50 Results prbc [Red Blood Cells] Stat Lab 06/10/25 13:50 Results Vital Signs Vital signs: Vital Signs Temperature 98.1 F 06/10/25 12:02 Pulse Rate 73 06/10/25 12:02 Respiratory Rate 18 06/10/25 12:02 Blood Pressure 120/71 06/10/25 12:02 Pulse Oximetry (%) 100 06/10/25 12:02 Oxygen Delivery Method Room Air 06/10/25 12:02 Discharge Plan Plan Patient Disposition: Other Care w/in Hosp ([facility]) Patient condition on transfer: Stable Prescriptions/Referrals Prescriptions/Med Rec: No Action levothyroxine 50 mcg tablet 1 tab PO QDAY Janumet 50-500 mg tablet 1 tab PO BID drospirenone-ethinyl estradiol [Breanne (28)] 3-0.03 mg tablet 1 tab PO QDAY ibuprofen 800 mg tablet 800 mg PO Q6H PRN (Reason: pain) Qty: 14 0RF Referrals: Eliza Lobato PA-C [Primary Care Provider] - In 1 week Problem List Clinical Impression: Osteomyelitis of toe Patient/Caregiver Discharge Instructions Print Language: Welsh Stand Alone Forms: Crystal Award Info., Patient Portal Info Letter PA/YOANA Supervising Physician NAINA Supervising Physician: Aaron Leach ENP [facility] Clinical Information Provided by: patient Medical Records reviewed [facility] Meds/Rx considered, not ordered None Labs/Rad/Tests considered, not ordered None Chronic Illness/Social Conditions Explain: Anemia EKG EKG not done Labs Labs: interpreted by [facility] Lab(s) Interpretation(s): CBC shows no acute leukocytosis, hemoglobin of 6.4 hematocrit of 24.7 platelets at 276. Coags within acceptable limits CMP shows no significant electrolyte imbalances renal impairment transaminitis or T. bili elevation Imaging Imaging interpretation: none
--- NOTE | 2025-06-10 14:46 | PC.NURSE ---
Patient from lobby and taken to room 11, sent by [facility] for low hemoglobin, patient denies pain, skin is cool dry and pale, new orders received for blood transfusion.
== END 2025-06-10 22:10 | disposition home or self-care (01) ==
PROVIDERS: Nurse Practitioner Family; Emergency Provider Family Medicine; PCP Physician Assistant Medical
DX: M86.9 Osteomyelitis, unspecified (principal); D50.9 Iron deficiency anemia, unspecified; Z79.84 Long term (current) use of oral hypoglycemic drugs
CPT/HCPCS: 36415; 36430; 80053; 85025; 85610; 85730; 86850; 86900; 86901; 86923; 99283; P9016

== ENCOUNTER 2025-06-19 09:59 | Outpatient (AMB) | payer MEDICAID, SELFPAY ==
--- NOTE | 2025-06-19 10:01 | AMB.GYNCLNOT ---
Vital Signs 06/19/25 10:06 Height 1.6 m Height Method Stated Weight 62.369 kg Weight Measurement Method Standing Scale BMI 24.3 BP 116/67 Blood Pressure Source Automatic Cuff Blood Pressure Location Right Upper Arm Position Sitting Respiration 18 Pulse 71 Pulse Source Monitor Temp 97.8 F Temp Source Temporal Artery Scan Pulse Oximetry (%) 98 Oxygen Delivery Method Room Air Allergies/Home Meds Allergies & Medications Allergies No Known Allergies Allergy (Verified 06/19/25 10:08) Medication Reconciliation sitagliptin phosphate 50 mg-metformin 500 mg tablet (Janumet) 1 tab PO BID 02/05/22 [History Confirmed 06/19/25] ibuprofen 800 mg tablet 800 mg PO Q6H PRN pain #14 tabs 12/29/24 [Rx Confirmed 06/19/25] levothyroxine 50 mcg tablet 25 mcg PO QDAY 06/19/25 [History Confirmed 06/19/25] Intake Visit Data Collection New Patient or Established: Established Patient (seen at [facility] within 3 years) Reason for Visit:: REFERRAL Seen by Clinical Staff ONLY (RN/MA): No Commercial Lines Assistant Required: Yes Commercial Lines Assistant's name/title: HAYDE TRUJILLO MA Do You Feel Safe at Home: Yes Authorities Contacted: N/A PCP or OBGYN visit in last 3 months: No Hx Now: No Are you currently on any form of Control: No Pain Present Currently: No Pain Scale Used: Smith-[place]/Numerical Smoking Status Smoking Status: Never smoker Immunizations Flu Vaccine in the Last 12 Months: No Flu Vaccine Exclusion Criteria: No Exclusion Criteria 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 Menstrual regularity: regular Flow: heavy Monthly: Yes How many days does period last: 5 Age at menarche: 17 Currently sexually active: Yes 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 Medical History Past Medical History: No Hx Neurological Disorders, Yes Hx Hypothyroidism, Yes Hx Hyperthyroidism, No Hx Breast Cancer, No Hx Cardiac Disorders, No Hx Hypertension, No Hx Cancer, Yes Hx Blood Disorders, Yes Hx Anemia, No Hx Gastrointestinal Disorders, No Hx Renal Disease, No Hx Deep Vein Thrombosis, No Hx Diabetes Mellitus Type 1, Yes Hx Diabetes Mellitus Type 2, Yes Hx Tubal Ligation, No Hx Hysterectomy and No Psychiatric Problems Questionnaires Covid-19 Vaccine Questionnaire Has patient been vacinated for Covid-19 Have you been vacinated for Covid-19: Yes PHQ-9 PHQ-2 Over the last 2 weeks, how often have you been bothered by any of the following problems? 1. Little interest or pleasure in doing things: not at all 2. Feeling down, depressed, or hopeless: not at all Total score: 0 PHQ-9 3. Trouble falling or staying asleep, or sleeping too much: Not at all 4. Feeling tired or having little energy: Not at all 5. Poor appetite or overeating: Not at all 6. Feeling bad about yourself - or that you are a failure or have let yourself or your family down: Not at all 7. Trouble concentrating on things, such as reading the newspaper or watching television: Not at all 8. Moving or speaking so slowly that other people could have noticed? - Or the opposite - being so fidgety or restless that you have been moving around a lot more than usual: not at all 9. Thoughts that you would be better off or of hurting yourself in some way: Not at all Total score: 0 If you checked off any problems, how difficult have these problems made it for you to do your work, take care of things at home, or get along with other people?: not difficult at all Source: Developed by Drs. Umer Sanders, Flora Rader, Tino Amanda and colleagues, with an educational yosef from [employer]. Depression screen completed yes Social History Living Situation History Marital Status: Life Partner Lives With: Family Housing: House Tobacco History Smoking Status: Never smoker Second Hand Smoke Exposure: No Alcohol History Alcohol Intake: Never Domestic Abuse History Do You Feel Safe at Home: Yes History of Present Illness HPI Narrative Abnormal uterine bleeding and symptomatic anemia Zita Virgen presents for consultation regarding abnormal uterine bleeding and symptomatic anemia. She has a history of thyroid non-toxic single thyroid nodule for which she has had biopsy performed. The patient reports experiencing menstrual bleeding twice a month, indicating irregular and heavy menstrual cycles. She experiences significant blood loss that causes her to feel lightheaded and dizzy. Her last pelvic ultrasound was performed approximately one year ago. Medical History: - Non-toxic single thyroid nodule with prior biopsy performed Surgical History: - Thyroid nodule biopsy (non-toxic single thyroid nodule) Exam General General Appearance: alert, in no apparent distress and healthy appearing Head Head exam: atraumatic Neck Neck exam: Present normal inspection and trachea midline Chest Chest inspection: Present normal inspection and symmetric chest wall rise External exam: Present normal external exam; Absent tenderness Neuro Neurological exam: Present oriented X3 Psych Psychiatric exam: Present normal affect and normal mood Office Procedures [facility] LOC & Office Proc's Nursing/Assessment Patient Status: Established Patient OB Clinic Nursing Assessment: Medication Reconciliation, Update PMH in EMR and Vital Signs OB Clinic Coordination of Care: Complex Care and Chronic Disease 1-5, Education Complex Pt/Fam, Consent,records obtained, informed consent, Lab and Imaging orders, Results/Orders obtained and Staff clarify orders Established Patient Charge Established Patient Point Assignment: 110 Established Patient Point Charge: EP Level 3 (80-115) Assessment & Plan Diagnosis / Problem List (1) Abnormal uterine and vaginal bleeding, unspecified: Status: Acute Plan Abnormal uterine bleeding Assessment: Patient reports menstrual bleeding occurring twice monthly with heavy flow causing symptoms of lightheadedness and dizziness, suggesting significant blood loss. Last pelvic ultrasound was performed approximately one year ago. The bleeding pattern and associated symptoms are consistent with abnormal uterine bleeding contributing to her anemia. Plan: - Order pelvic ultrasound - Prescribe temporary medication to reduce menstrual blood loss - Start medication on first day of next menstrual period - Continue for 7 days even if bleeding stops before completion - Schedule follow-up appointment in one month - Send prescription to [facility] pharmacy Symptomatic anemia Assessment: Patient has documented anemia with symptoms of lightheadedness and dizziness associated with heavy menstrual bleeding. The anemia appears to be secondary to excessive uterine blood loss given the temporal relationship with menstrual symptoms. Plan: - Temporary medication prescribed to reduce menstrual blood loss to help address underlying cause of anemia Thyroid nodule Assessment: Patient has history of non-toxic single thyroid nodule for which biopsy has been performed. Plan: - No specific plan discussed for thyroid nodule management during this visit
[2025-06-19 10:06] VITALS: BP 116/67; PULSE 71; RESP 18; TEMP 36.6; O2SAT 98; BMI 24.3
== END 2025-06-19 10:26 | disposition home or self-care (01) ==
LOC: HODSOBC 09:59
PROVIDERS: PCP Physician Assistant Medical; Referring Provider Physician Assistant Medical; Supervising Provider Obstetrics & Gynecology; Visit Provider Obstetrics & Gynecology
DX: N93.9 Abnormal uterine and vaginal bleeding, unspecified (principal); D64.9 Anemia, unspecified; E11.9 Type 2 diabetes mellitus without complications; E03.9 Hypothyroidism, unspecified; Z79.84 Long term (current) use of oral hypoglycemic drugs; Z79.890 Hormone replacement therapy
CPT/HCPCS: 99213; G0463

== ENCOUNTER 2025-07-01 13:34 | Outpatient (RCR) | payer MEDICAID, SELFPAY ==
[2025-06-24 14:46] LABS: Hematocrit 33.7 % (36.0-46.0); Hemoglobin 9.8 g/dL (12.0-16.0)
== END 2025-07-14 23:59 | disposition home or self-care (01) ==
LOC: SCTC 13:34
PROVIDERS: Nurse Practitioner Family; PCP Physician Assistant Medical; Referring Provider Physician Assistant Medical; Visit Provider Internal Medicine Hematology & Oncology
DX: D50.9 Iron deficiency anemia, unspecified (principal); N92.0 Excessive and frequent menstruation with regular cycle
CPT/HCPCS: 85014; 85018; 96365; 96375; A4216; J1756; J2919; J3490; J7040